=== PATIENT | male | born 1985 | race Caucasian/White ===

== ENCOUNTER 2020-08-29 10:37 | Emergency (ER) | payer OTHER ==
--- NOTE | 2020-08-29 11:27 | EDM.PDOC ---
ED HPI GENERAL MEDICAL PROBLEM - General Chief Complaint: Skin Complaint Stated Complaint: CAROLIN HAS LYMES DISEASE [id number] Time Seen by Provider: 08/29/20 11:21 Source of Information: Reports: Patient, RN, RN Notes Reviewed History Limitations: Reports: No Limitations - History of Present Illness INITIAL COMMENTS - FREE TEXT/NARRATIVE: Yimi is a 35 y/o male who presents to the ED via personal vehicle with complaints of redness and pruritus to multiple lesion scattered on his upper extremities. The patient reports he first noted the lesions approximately seven days ago. 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 He denies recent trips into heavily wooded areas or tall grass, however, he was in the grass outside of his hotel over the August holiday to watch fireworks. He denies fever, shaking chills, lethargy, palpitations, nausea, vomiting, or diarrhea. He has been applying hydrocortisone cream to the lesions, which he feels has provided some alleviation of symptoms. - Related Data Allergies Allergy/AdvReac Type Severity Reaction Status Date / Time No Known Allergies Allergy Verified 08/29/20 11:05 Home Meds: Home Meds . [No Known Home Meds] 08/29/20 [History] Past Medical History - Past Health History Medical/Surgical History: Denies Medical/Surgical History HEENT History: Reports: None Cardiovascular History: Reports: None Respiratory History: Reports: None Gastrointestinal History: Reports: None Genitourinary History: Reports: None Musculoskeletal History: Reports: None Neurological History: Reports: None Psychiatric History: Reports: None Endocrine/Metabolic History: Reports: None Hematologic History: Reports: None Immunologic History: Reports: None Oncologic (Cancer) History: Reports: None Dermatologic History: Reports: None - Infectious Disease History Infectious Disease History: Reports: None - Past Surgical History Head Surgeries/Procedures: Reports: None Social & Family History - Family History Family Medical History: Unobtainable - Tobacco Use Tobacco Use Status *Q: Never Tobacco User - Caffeine Use Caffeine Use: Reports: Energy Drinks - Alcohol Use Days Per Week of Alcohol Use: 2 Number of Drinks Per Day: 4 Total Drinks Per Week: 8 - Recreational Drug Use Recreational Drug Use: No ED ROS GENERAL - Review of Systems Review Of Systems: Comprehensive ROS is negative, except as noted in HPI. ED EXAM, SKIN/RASH Exam: See Below Exam Limited By: No Limitations General Appearance: Alert, No Apparent Distress Eye Exam: Bilateral Eye: EOMI, Normal Inspection, PERRL (3mm) Ears: Normal External Exam, Hearing Grossly Normal Nose: Normal Inspection, Normal Mucosa, No Blood Throat/Mouth: Normal Inspection, Normal Lips, Normal Teeth, Normal Gums, Normal Oropharynx, Normal Voice, No Airway Compromise Head: Atraumatic, Normocephalic Neck: Normal Inspection, Supple, Non-Tender, Full Range of Motion. No: Lymphadenopathy (L), Lymphadenopathy (R) Respiratory/Chest: No Respiratory Distress, Lungs Clear, Normal Breath Sounds, No Accessory Muscle Use, Chest Non-Tender Cardiovascular: Normal Peripheral Pulses, Regular Rate, Rhythm, No Edema, No Gallop, No JVD, No Murmur, No Rub Peripheral Pulses: 2+: Radial (L), Radial (R) GI/Abdominal: Normal Bowel Sounds, Soft, Non-Tender, No Distention, No Abnormal Bruit, No Mass, Pelvis Stable (Male) Exam: Deferred Rectal (Males) Exam: Deferred Back Exam: Normal Inspection, Full Range of Motion, Other (Two erythematous lesions to lower left back) Extremities: Normal Range of Motion, Non-Tender, No Pedal Edema, Normal Capillary Refill, Other (Scattered scabbed, erythematous lesions in various stages of healing; Ringed erythema surrounding pinpoint lesion on left posterior upper arm) Neurological: Alert, Oriented, CN II-XII Intact, Normal Cognition, Normal Gait, No Motor/Sensory Deficits Psychiatric: Normal Affect, Normal Mood Skin: Wound/Incision (See above) Location, Skin: Back, Upper Extremity, Right, Upper Extremity, Left Characteristics: Macular, Erythematous Associated features: Warmth Lymphatic: No Adenopathy Course - Vital Signs Last Recorded V/S: Last Vital Signs Temp 98.0 F 08/29/20 11:05 Pulse 98 08/29/20 11:05 Resp 16 08/29/20 11:05 BP 170/88 H 08/29/20 11:05 Pulse Ox 100 08/29/20 11:05 - Re-Assessments/Exams Free Text/Narrative Re-Assessment/Exam: 08/29/20 Findings of examination reviewed with patient. Most bites appear to be from mosquitoes, however concern regarding left posterior upper arm. Will treat empirically for Lyme's Disease with doxycycline. Discussed supportive cares for bites as well as red flag signs and symptoms which would warrant reevaluation. Patient verbalized understanding and agreement with the plan of care. Departure - Departure Time of Disposition: 11:33 Disposition: Home, Self-Care 01 Condition: Fair Clinical Impression: Early localized Lyme disease Mosquito bite Qualifiers: Encounter type: initial encounter Qualified Code(s): W57.XXXA - Bitten or stung by nonvenomous insect and other nonvenomous arthropods, initial encounter - Discharge Information Instructions: Insect Bite, Adult, [id number], Lyme Disease Additional Instructions: Rx: doxycycline 1.) Take all of your antibiotic until gone. 2.) You may apply hydrocortisone cream to scattered bites for itching. 3.) You may apply cold pack to scattered bites for itching. 4.) Eat a yogurt daily, or take an [id number] probiotic, while taking antibiotics. 5.) Follow up with your primary care provider, or return to the emergency department, with any worsening symptoms or fever, shaking chills, persistent sleepiness. Sepsis Event Note (ED) - Evaluation Sepsis Screening Result: No Definite Risk - Focused Exam Vital Signs: Vital Signs Temp Pulse Resp BP Pulse Ox 08/29/20 11:05 98.0 F 98 16 170/88 H 100
== END 2020-08-29 11:50 | disposition home or self-care (01) ==
LOC: DL.ED 10:37
DX: S40.862A Insect bite (nonvenomous) of left upper arm, initial encounter (principal); S30.860A Insect bite (nonvenomous) of lower back and pelvis, initial encounter; A69.20 Lyme disease, unspecified; W57.XXXA Bitten or stung by nonvenomous insect and other nonvenomous arthropods, initial encounter
CPT/HCPCS: 99282; 99283